=== PATIENT | male | born 1975 | race Caucasian/White ===

== ENCOUNTER 2019-06-28 17:40 | Emergency (ER) | payer OTHER ==
--- NOTE | 2019-06-28 17:59 | RAD REPORT ---
EXAM DESCRIPTION: CT - Ct Stroke Brain Wo Cont - 06/28/2019 5:49 pm CLINICAL HISTORY: Visual disturbance COMPARISON: 2010 TECHNIQUE: Computed axial tomography of the head was obtained. All CT scans are performed using dose optimization technique as appropriate and may include automated exposure control or mA/KV adjustment according to patient size. FINDINGS: An intracranial bleed is not seen . The ventricles are normal in caliber. No extra-axial fluid collection is noted. Fluid within the sinuses/ mastoids is not seen. IMPRESSION: No acute intracranial abnormality is seen. If patient's symptoms persist MRI of the bra in would be recommended. Dr Stock of the emergency room was notified at 5:54 p.m. on June 28, 2019
[2019-06-28 18:06] LABS: Absolute Lymphocytes (CBC) 2.5 K/uL (0.7-4.9); Basophils % 0.4 % (0-1.3); Hematocrit 43.7 % (39.6-49.0); Lymphocytes % 34.1 % (15.3-44.8); MPV 9.1 fL (7.6-11.3); RBC Red Blood Cell Count 4.78 M/uL (4.33-5.43)
[2019-06-28] MEDS ORDERED: ALTEPLASE 100 ML IV ONE (18:07)
[2019-06-28] MEDS ORDERED: NA CHLORIDE 0.9% 50 ML IV ONE (18:07)
[2019-06-28 18:11] LABS: Protime INR 0.97
--- NOTE | 2019-06-28 18:14 | EDPHYS ---
Physician Documentation [facility] Name: Zander Sanchez Age: 43 yrs Sex: Male : 1975 Arrival Date: 06/28/2019 Time: 17:42 Bed 25 Private MD: ED Physician Thanh Stock HPI: 06/28 17:46 This 43 yrs old Male presents to ER via Ambulatory with complaints of Right kdr visula field deficit. 17:46 The patient presents to the emergency department with a vision problem, right visual kdr field loss, Right eye greater than left. Onset: The symptoms/episode began/occurred suddenly, 0.25 hour(s) ago. Context: occurred at home, occurred while the patient was at rest. Associated signs and symptoms: Pertinent positives: headache, Left sided - began a few minutes before the visual filed deficits. He has had prior Migraine DUONG but they have not previously manifest in tis fashion. Severity of symptoms: At their worst the symptoms were mild in the emergency department the symptoms are unchanged. Patient's baseline: Neuro: alert and fully oriented, Motor: no deficits, Ambulation: walks without assistance, Speech: normal, The patient has a previous history of. Current symptoms: visual disturbance, blurred vision, loss of vision, hemianopsia is described. The patient has not experienced similar symptoms in the past. The patient has not recently seen a physician. Historical: - Allergies: 17:48 No Known Allergies; mg2 - PMHx: 17:48 cluster headaches; Myocardial infarction; Hyperlipidemia; Hypertension; mg2 - Immunization history:: Flu vaccine is not up to date. - Social history:: Smoking status: Patient uses tobacco products, smokes one pack cigarettes per day. - Ebola Screening: : No symptoms or risks identified at this time. ROS: 17:46 Constitutional: Negative for fever, chills, and weight loss, Eyes: Negative for injury, kdr pain, redness, and discharge, ENT: Negative for injury, pain, and discharge, Neck: Negative for injury, pain, and swelling, Cardiovascular: Negative for chest pain, palpitations, and edema, Respiratory: Negative for shortness of breath, cough, wheezing, and pleuritic chest pain, Abdomen/GI: Negative for abdominal pain, nausea, vomiting, diarrhea, and constipation, Back: Negative for injury and pain, : Negative for injury, bleeding, discharge, and swelling, MS/Extremity: Negative for injury and deformity, Skin: Negative for injury, rash, and discoloration, Psych: Negative for depression, anxiety, suicide ideation, homicidal ideation, and hallucinations, Allergy/Immunology: Negative for hives, rash, and allergies, Endocrine: Negative for neck swelling, polydipsia, polyuria, polyphagia, and marked weight changes, Hematologic/Lymphatic: Negative for swollen nodes, abnormal bleeding, and unusual bruising. 17:46 Neuro: Positive for headache, visual changes, Negative for altered mental status, dizziness, gait disturbance, numbness, seizure activity, speech changes, syncope, near syncope, tingling, tinnitus, tremor, weakness, acute changes. Exam: 17:46 Constitutional: This is a well developed, well nourished patient who is awake, alert, kdr and in no acute distress. Head/Face: Normocephalic, atraumatic. Eyes: Pupils equal round and reactive to light, extra-ocular motions intact. Lids and lashes normal. Conjunctiva and sclera are non-icteric and not injected. Cornea within normal limits. Periorbital areas with no swelling, redness, or edema. Neck: Trachea midline, no thyromegaly or masses palpated, and no cervical lymphadenopathy. Supple, full range of motion without nuchal rigidity, or vertebral point tenderness. No Meningismus. Chest/axilla: Normal chest wall appearance and motion. Nontender with no deformity. No lesions are appreciated. Cardiovascular: Regular rate and rhythm with a normal S1 and S2. No gallops, murmurs, or rubs. Normal PMI, no JVD. No pulse deficits. Respiratory: Lungs have equal breath sounds bilaterally, clear to auscultation and percussion. No rales, rhonchi or wheezes noted. No increased work of breathing, no retractions or nasal flaring. Abdomen/GI: Soft, non-tender, with normal bowel sounds. No distension or tympany. No guarding or rebound. No evidence of tenderness throughout. Back: No spinal tenderness. No costovertebral tenderness. Full range of motion. Skin: Warm, dry with normal turgor. Normal color with no rashes, no lesions, and no evidence of cellulitis. MS/ Extremity: Pulses equal, no cyanosis. Neurovascular intact. Full, normal range of motion. Psych: Awake, alert, with orientation to person, place and time. Behavior, mood, and affect are within normal limits. 17:46 Neuro: Orientation: is normal, Mentation: is normal, Memory: is normal, Cranial nerves: grossly normal, Motor: is normal, Sensation: Vital Signs: 17:46 BP 145 / 90; Pulse 65; Resp 18; Temp 98.5; Pulse Ox 98% on R/A; Weight 99.79 kg; Height mg2 6 ft. 2 in. (187.96 cm); Pain 2/10; 18:25 BP 132 / 92; Pulse 64; Resp 18; Pulse Ox 100% on R/A; mg2 18:29 BP 132 / 92; Pulse 74; Resp 16; Pulse Ox 100% on R/A; iw 18:40 BP 145 / 93; Pulse 66; Resp 18; Pulse Ox 100% ; mg2 19:10 BP 130 / 86; Pulse 68; Resp 18; Pulse Ox 100% ; mg2 19:25 BP 128 / 88; Pulse 72; Resp 18; Temp 98.5; Pulse Ox 100% on R/A; mg2 19:25 BP 128 / 88; Pulse 72; Resp 18; Pulse Ox 100% ; Pain 0/10; mg2 20:10 BP 122 / 80; Pulse 71; Resp 18; Temp 98.2; Pulse Ox 100% on R/A; Pain 0/10; mg2 17:46 Body Mass Index 28.25 (99.79 kg, 187.96 cm) mg2 NIH Stroke Scale Scores: 17:45 NIHSS Score: 2 kdr 18:15 NIHSS Score: 2 mg2 MDM: 18:13 Patient medically screened. kdr 18:25 Data reviewed: vital signs, nurses notes, lab test result(s), EKG, radiologic studies. kdr Counseling: I had a detailed discussion with the patient and/or guardian regarding: the historical points, exam findings, and any diagnostic results supporting the discharge/admit diagnosis, lab results, radiology results, the need to transfer to another facility. Physician consultation: Bryan Thornton MD was called at 18:15, was contacted at 18:15, regarding patient's condition, Rec drip \T\ ship. 06/28 17:44 Order name: Basic Metabolic Panel kdr 06/28 17:44 Order name: CBC with Diff kdr 06/28 17:44 Order name: Protime (+inr) kdr 06/28 17:44 Order name: Ptt, Activated kdr 06/28 17:44 Order name: CT Stroke Brain w/o Contrast kdr 06/28 18:10 Order name: Glucose, Ancillary Testing EDMS 06/28 17:44 Order name: Stroke CXR 1 View kdr 06/28 17:44 Order name: EKG; Complete Time: 17:45 kdr 06/28 17:44 Order name: Accucheck; Complete Time: 18:00 kdr 06/28 17:44 Order name: Cardiac monitoring; Complete Time: 18:00 kdr 06/28 17:44 Order name: EKG - Nurse/Tech; Complete Time: 18:00 kdr 06/28 17:44 Order name: IV Saline Lock; Complete Time: 18:00 kdr 06/28 17:44 Order name: Labs collected and sent; Complete Time: 18:00 kdr 06/28 17:44 Order name: NPO; Complete Time: 18:00 kdr 06/28 17:44 Order name: O2 Per Protocol; Complete Time: 18:00 kdr 06/28 17:44 Order name: O2 Sat Monitoring; Complete Time: 18:00 kdr 06/28 17:44 Order name: Stroke Swallow Screen; Complete Time: 18:00 kdr Administered Medications: 18:21 Drug: Alteplase {Co-Signature: iw (Racquel Oneal RN).} Route: IV Thrombolytics; Rate: mg2 calculated rate; 19:25 Follow up: BP 128 / 88; Pulse 72 bpm; Resp 18 bpm; Pulse Ox 100% ; Pain 0/10 Adult mg2 18:26 Not Given (Physician Discretion): Tenecteplase 30 mg IV at calculated rate once; See mg2 stroke protocol for exact administration dosing and rate 18:45 Drug: [place] (7.5 mg-325 mg) 1 tabs Route: PO; iw 19:30 Follow up: Response: No adverse reaction; Marked relief of symptoms mg2 Point of Care Testing: Blood Glucose: 17:55 Blood Glucose: 93 mg/dL; mg2 Ranges: Critical Glucose Levels:Adult <50 mg/dl or >400 mg/dl <40 mg/dl or >180 mg/dl Disposition: 06/28/19 18:13 Transfer ordered to [facility]. Diagnosis is Non-hemorrhagic CVA with right hemianopsia. - Reason for transfer: Higher level of care. - Accepting physician is Tao Huang. - Condition is Serious. - Problem is new. - Symptoms have improved. NIH Stroke Scale - NIH Stroke Score Date: 06/28/2019 Time: 17:45 Total Score = 2 1a. Level of Consciousness (LOC) - 0(Alert) 1b. Level of Consciousness (LOC) (Year \T\ Age) - 0(Both) 1c. LOC Commands (Open \T\ Closes Eyes/Health Plan Advisor) - 0(Both) 2. Best Gaze (Lateral Gaze Paresis) - 0(Normal) 3. Visual Field Loss - 2(Complete hemianopia) 4. Facial Palsy - 0(Normal) 5a. Left Arm: Motor (10-second hold) - 0(No drift) 5b. Right Arm: Motor (10-second hold) - 0(No drift) 6a. Left Leg: Motor (5-second hold - always test supine) - 0(No drift) 6b. Right Leg: Motor (5-second hold - always test supine) - 0(No drift) 7. Limb Ataxia (finger/nose \T\ heel/silva - test with eyes open) - 0(Absent) 8. Sensory Loss (pinprick arms/legs/face) - 0(Normal) 9. Best Language: Aphasia (description/naming/reading) - 0(No aphasia) 10. Dysarthria (speech clarity - read or repeat words) - 0(Normal) 11. Extinction and Inattention (visual/tactile/auditory/spatial/personal) - 0(No abnormality) Initials: [facility] NIH Stroke Scale - NIH Stroke Score Date: 06/28/2019 Time: 18:15 Total Score = 2 1a. Level of Consciousness (LOC) - 0(Alert) 1b. Level of Consciousness (LOC) (Year \T\ Age) - 0(Both) 1c. LOC Commands (Open \T\ Closes Eyes/Health Plan Advisor) - 0(Both) 2. Best Gaze (Lateral Gaze Paresis) - 0(Normal) 3. Visual Field Loss - 2(Complete hemianopia) 4. Facial Palsy - 0(Normal) 5a. Left Arm: Motor (10-second hold) - 0(No drift) 5b. Right Arm: Motor (10-second hold) - 0(No drift) 6a. Left Leg: Motor (5-second hold - always test supine) - 0(No drift) 6b. Right Leg: Motor (5-second hold - always test supine) - 0(No drift) 7. Limb Ataxia (finger/nose \T\ heel/silva - test with eyes open) - 0(Absent) 8. Sensory Loss (pinprick arms/legs/face) - 0(Normal) 9. Best Language: Aphasia (description/naming/reading) - 0(No aphasia) 10. Dysarthria (speech clarity - read or repeat words) - 0(Normal) 11. Extinction and Inattention (visual/tactile/auditory/spatial/personal) - 0(No abnormality) Initials: [facility] [place] Signatures: Dispatcher [employer] EDMS Thanh Stock MD MD [facility] Racquel Oneal RN RN iw Onofre Marcial RN RN [facility] [place] Racquel Oneal RN iw Corrections: (The following items were deleted from the chart) 20:27 18:13 06/28/2019 18:13 Transfer ordered to [address] Diagnosis is Non-hemorrhagic CVA with right hemianopsia. Reason for transfer: Higher level of care. Accepting physician is [facility]. Condition is Serious. Problem is new. Symptoms have improved. kdr
--- NOTE | 2019-06-28 18:14 | ER ---
Nurse's Notes [facility] Name: Zander Sanchez Age: 43 yrs Sex: Male : 1975 Arrival Date: 06/28/2019 Time: 17:42 Bed 25 [facility] MD: Diagnosis: Non-hemorrhagic CVA with right hemianopsia Presentation: 06/28 17:43 Presenting complaint: Patient states: i started to have loss of vision on my right eye mg2 field. i also have headache on my left side. 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 im also a bit nauseated. Transition of care: patient was not received from another setting of care. Onset of symptoms was June 28, 2019 at 17:15. Risk Assessment: Do you want to hurt yourself or someone else? Patient reports no desire to harm self or others. Initial Sepsis Screen: Does the patient meet any 2 criteria? No. Patient's initial sepsis screen is negative. Does the patient have a suspected source of infection? No. Patient's initial sepsis screen is negative. Care prior to arrival: None. 17:43 Method Of Arrival: Ambulatory mg2 17:43 Acuity: KIMBERLY 2 mg2 17:49 The patients blood glucose was checked before arriving to the hospital and was found to iw be normal. Triage Assessment: 18:30 The onset of the patients symptoms was June 28, 2019 at 17:00. mg2 18:30 General: Appears in no apparent distress. comfortable, Behavior is calm, cooperative. mg2 Pain: Complains of pain in right side of the head Pain does not radiate. Pain currently is 2 out of 10 on a pain scale. Quality of pain is described as aching, Pain began gradually, 1 hour ago. Is intermittent. EENT: No signs and/or symptoms were reported regarding the EENT system. Neuro: Level of Consciousness is awake, alert, obeys commands, Oriented to person, place, time, situation, Reports headache in right bahai vision loss in the right eye field. Cardiovascular: Capillary refill < 3 seconds Patient's skin is warm and dry. Respiratory: Airway is patent Respiratory effort is even, unlabored, Respiratory pattern is regular, symmetrical. GI: No signs and/or symptoms were reported involving the gastrointestinal system. : No signs and/or symptoms were reported regarding the genitourinary system. Derm: Skin is intact, is healthy with good turgor, Skin is pink, warm \T\ dry. normal. Musculoskeletal: Circulation, motion, and sensation intact. Capillary refill < 3 seconds. Stroke Activation: Symptom onset < 3 hours Physician: Stroke Attending; Name: ; Notified At: ; Arrived At: Physician: Chief Stroke Resident; Name: ; Notified At: ; Arrived At: Physician: Stroke Resident; Name: ; Notified At: ; Arrived At: Physician: ED Attending; Name: Dr. Vegas; Notified At: 17:49; Arrived At: 17:49 Physician: ED Resident; Name: ; Notified At: ; Arrived At: Historical: - Allergies: 17:48 No Known Allergies; mg2 - PMHx: 17:48 cluster headaches; Myocardial infarction; Hyperlipidemia; Hypertension; mg2 - Immunization history:: Flu vaccine is not up to date. - Social history:: Smoking status: Patient uses tobacco products, smokes one pack cigarettes per day. - Ebola Screening: : No symptoms or risks identified at this time. Screenin:01 Abuse screen: Denies threats or abuse. Denies injuries from another. Nutritional mg2 screening: No deficits noted. Tuberculosis screening: No symptoms or risk factors identified. Fall Risk IV access (20 points). Assessment: 18:20 Patient has been NPO before screening. The patient is alert, and able to follow mg2 commands. The patient does not exhibit slurred or garbled speech. The patient is not exhibiting difficulty speaking. The patient does not exhibit difficulty understanding words. The patient is able to swallow own secretions with no drooling or need for suction. Patient tolerated one teaspoon of water. No drooling, immediate coughing, gurgling, or clearing of the throat was noted. The patient tolerated 90mL of water. No drooling, immediate coughing, gurgling, or clearing of the throat was noted. The patient passed the bedside swallow screening. Oral medications may be given as ordered. Contact Physician for further diet orders. Provider notified of bedside swallow screening results: Thanh Stock MD. 18:20 VAN Scoring: Arm Drift: Patients demonstrates NO arm weakness. Patient is VAN Negative. 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 Provider notified of +VAN scoring. Aphasia: No aphasia noted. Neglect: No neglect noted. T-PA (Activase) Screening: Indications: Definite evidence of stroke, ischemic, embolic, or hypertensive: Yes. Treatment will start within 4.5 hours onset of symptoms: Yes. No evidence of intracranial hemorrhage or CT of head and no evidence of peripheral hemorrhage or recent CVA: Yes. Consent for thrombolytic therapy: Yes. Pain: Complains of pain in head Pain does not radiate. Pain currently is 2 out of 10 on a pain scale. Quality of pain is described as aching, Pain began suddenly, 1 hour ago. Is intermittent. Neuro: Level of Consciousness is awake, alert, obeys commands, Oriented to person, place, time, situation. 18:28 Reassessment: Pt has been consented for TPA, bolus of 8.8 mg administered at 1821, iw verified by ARIEL Adhikari, infusion of 79.4 mg started at 1825, ARIEL Adhikari at beside to monitor patient. 19:05 Reassessment: Report given to AFSHAN Gomez 17 minutes. iw 19:10 Reassessment: Patient appears in no apparent distress at this time. Patient and/or mg2 family updated on plan of care and expected duration. Pain level reassessed. patient verbalized improvement in vision. he can actually read the snellen chart from his right side. Patient states feeling better. Patient states symptoms have improved. 19:45 Reassessment: Patient appears in no apparent distress at this time. report given to carmen Sihn RN of [facility]. Vital Signs: 17:46 BP 145 / 90; Pulse 65; Resp 18; Temp 98.5; Pulse Ox 98% on R/A; Weight 99.79 kg; Height mg2 6 ft. 2 in. (187.96 cm); Pain 2/10; 18:25 BP 132 / 92; Pulse 64; Resp 18; Pulse Ox 100% on R/A; mg2 18:29 BP 132 / 92; Pulse 74; Resp 16; Pulse Ox 100% on R/A; iw 18:40 BP 145 / 93; Pulse 66; Resp 18; Pulse Ox 100% ; mg2 19:10 BP 130 / 86; Pulse 68; Resp 18; Pulse Ox 100% ; mg2 19:25 BP 128 / 88; Pulse 72; Resp 18; Temp 98.5; Pulse Ox 100% on R/A; mg2 19:25 BP 128 / 88; Pulse 72; Resp 18; Pulse Ox 100% ; Pain 0/10; mg2 20:10 BP 122 / 80; Pulse 71; Resp 18; Temp 98.2; Pulse Ox 100% on R/A; Pain 0/10; mg2 17:46 Body Mass Index 28.25 (99.79 kg, 187.96 cm) mg2 NIH Stroke Scale Scores: 17:45 NIHSS Score: 2 kdr 18:15 NIHSS Score: 2 mg2 ED Course: 17:42 Patient arrived in ED. iw 17:42 Thanh Stock MD is Attending Physician. kdr 17:43 Onofre Marcial, RN is Primary Nurse. mg2 17:46 Triage completed. mg2 17:49 Arm band placed on. mg2 17:51 CT Stroke Brain w/o Contrast In Process Unspecified. EDMS 17:55 Inserted saline lock: 20 gauge in left antecubital area, using aseptic technique. Blood mg2 collected. 18:03 EKG done, by safety technician. reviewed by Thanh Stock MD. sm3 18:08 Stroke CXR 1 View In Process Unspecified. EDMS 18:15 No provider procedures requiring assistance completed. mg2 18:16 initiated a transfer with Sofi at the [facility]. eb 18:20 Patient has correct armband on for positive identification. mg2 18:20 teletypesetter monitor on. Pulse ox on. NIBP on. Door closed. mg2 20:26 Patient transferred, IV remains in place. mg2 Administered Medications: 18:21 Drug: Alteplase {Co-Signature: iw (Racquel Oneal RN).} Route: IV Thrombolytics; Rate: mg2 calculated rate; 19:25 Follow up: BP 128 / 88; Pulse 72 bpm; Resp 18 bpm; Pulse Ox 100% ; Pain 0/10 Adult mg2 18:26 Not Given (Physician Discretion): Tenecteplase 30 mg IV at calculated rate once; See mg2 stroke protocol for exact administration dosing and rate 18:45 Drug: [place] (7.5 mg-325 mg) 1 tabs Route: PO; iw 19:30 Follow up: Response: No adverse reaction; Marked relief of symptoms mg2 Point of Care Testing: Blood Glucose: 17:55 Blood Glucose: 93 mg/dL; mg2 Ranges: Outcome: 18:13 ER care complete, transfer ordered by . kdr 20:20 Transferred by ground EMS to [facility], Transfer form completed. mg2 20:20 Condition: stable 20:20 Instructed on the need for transfer, Demonstrated understanding of instructions. mg2 20:27 Patient left the ED. mg2 NIH Stroke Scale - NIH Stroke Score Date: 06/28/2019 Time: 17:45 Total Score = 2 1a. Level of Consciousness (LOC) - 0(Alert) 1b. Level of Consciousness (LOC) (Year \T\ Age) - 0(Both) 1c. LOC Commands (Open \T\ Closes Eyes/Bus Boy) - 0(Both) 2. Best Gaze (Lateral Gaze Paresis) - 0(Normal) 3. Visual Field Loss - 2(Complete hemianopia) 4. Facial Palsy - 0(Normal) 5a. Left Arm: Motor (10-second hold) - 0(No drift) 5b. Right Arm: Motor (10-second hold) - 0(No drift) 6a. Left Leg: Motor (5-second hold - always test supine) - 0(No drift) 6b. Right Leg: Motor (5-second hold - always test supine) - 0(No drift) 7. Limb Ataxia (finger/nose \T\ heel/silva - test with eyes open) - 0(Absent) 8. Sensory Loss (pinprick arms/legs/face) - 0(Normal) 9. Best Language: Aphasia (description/naming/reading) - 0(No aphasia) 10. Dysarthria (speech clarity - read or repeat words) - 0(Normal) 11. Extinction and Inattention (visual/tactile/auditory/spatial/personal) - 0(No abnormality) Initials: kdr NIH Stroke Scale - NIH Stroke Score Date: 06/28/2019 Time: 18:15 Total Score = 2 1a. Level of Consciousness (LOC) - 0(Alert) 1b. Level of Consciousness (LOC) (Year \T\ Age) - 0(Both) 1c. LOC Commands (Open \T\ Closes Eyes/Bus Boy) - 0(Both) 2. Best Gaze (Lateral Gaze Paresis) - 0(Normal) 3. Visual Field Loss - 2(Complete hemianopia) 4. Facial Palsy - 0(Normal) 5a. Left Arm: Motor (10-second hold) - 0(No drift) 5b. Right Arm: Motor (10-second hold) - 0(No drift) 6a. Left Leg: Motor (5-second hold - always test supine) - 0(No drift) 6b. Right Leg: Motor (5-second hold - always test supine) - 0(No drift) 7. Limb Ataxia (finger/nose \T\ heel/silva - test with eyes open) - 0(Absent) 8. Sensory Loss (pinprick arms/legs/face) - 0(Normal) 9. Best Language: Aphasia (description/naming/reading) - 0(No aphasia) 10. Dysarthria (speech clarity - read or repeat words) - 0(Normal) 11. Extinction and Inattention (visual/tactile/auditory/spatial/personal) - 0(No abnormality) Initials: mg2 Signatures: Dispatcher [employer] EDMS Thanh Stock MD MD kdr Williams, Irene, RN RN iw Cristela Lynne Michele, RN RN mg2 Radha Austin 3 Racquel Oneal RN iw Corrections: (The following items were deleted from the chart) 22:06 18:15 Inserted saline lock: 20 gauge in left antecubital area, using aseptic mg2 technique. Blood collected. mg2
[2019-06-28] MEDS ORDERED: HYDROCODONE/APAP 7.5/325 MG TAB ONE (18:45)
--- NOTE | 2019-06-28 19:05 | RAD REPORT ---
EXAM DESCRIPTION: Hank Single View06/28/2019 6:10 pm CLINICAL HISTORY: Hypertension visual defect COMPARISON: 2016 FINDINGS: The lungs appear clear of acute infiltrate. The heart is normal size IMPRESSION: No acute abnormalities displayed
[2019-06-28 20:33] VITALS: TEMP 98.5
[2019-06-28 20:34] VITALS: BP 132/92; O2SAT 100
--- NOTE | 2019-06-29 12:30 | EKG ---
Test Date: 2019-06-28 Test Time: 17:47:30 Etcher Electrolytic: JORDAN MEASUREMENT RESULTS: Intervals: Rate: 60 ID: [id number] QRSD: 96 QT: 400 QTc: 400 Reddick: P: 63 ID: [id number] QRS: 14 T: 66 INTERPRETIVE STATEMENTS: Normal sinus rhythm Normal ECG Compared to ECG 05/17/2017 20:24:00 Incomplete right bundle-branch block no longer present Electronically Signed On 06-29-19 12:29:07 CDT by Collins Osman
== END 2019-06-28 20:27 | disposition short-term general hospital (02) ==
LOC: ER 17:40
DX: I63.9 Cerebral infarction, unspecified (principal); H53.461 Homonymous bilateral field defects, right side; F17.210 Nicotine dependence, cigarettes, uncomplicated; I10 Essential (primary) hypertension; R29.702 NIHSS score 2
CPT/HCPCS: 92977; 93005; 85025; 80048; 36415; 85610; 82947; 85730; 70450; 71045; 99285; 96374; J2997

== ENCOUNTER 2025-04-17 06:20 | Emergency (ER) | payer OTHER, SELFPAY ==
[2025-04-17 06:52] LABS: Absolute Lymphocytes (CBC) 1.7 K/uL (0.7-4.9); Hematocrit 43.3 % (39.6-49.0); Hemoglobin 15.1 g/dL (13.6-17.9); MCH 30.8 pg (27.0-35.0); MCHC 34.8 g/dL (32.0-36.0); MCV 88.7 fL (80-100); MPV 8.6 fL (7.6-11.3); Nucleated RBC Absolute Count 0.0 (0-0); Nucleated Red Blood Cells % 0.0 % (0-0); RBC Red Blood Cell Count 4.88 M/uL (4.33-5.43); White Blood Count 6.60 thou/uL (4.3-10.9)
[2025-04-17 06:59] LABS: PT Prothrombin Time 11.5 SECONDS (10-13.0); Protime INR 1.02
--- NOTE | 2025-04-17 07:01 | RAD REPORT ---
Procedure: Chest Single View HISTORY: Chest pain COMPARISON: 2019 FINDINGS: The lungs appear clear of acute infiltrate. No significant pleural effusion noted. The heart is normal size. IMPRESSION: No acute abnormality is displayed.
[2025-04-17 07:14] LABS: ALT/SGPT 44 U/L (16-61); AST/SGOT 16 U/L (15-37); Albumin 3.6 g/dL (3.4-5.0); Albumin/Globulin Ratio 1.2 (1.1-1.8); Alkaline Phosphatase 82 U/L (45-117); Anion Gap 8.0 mEq/L (5.0-15.0); BUN Blood Urea Nitrogen 15 mg/dL (7-18); Globulin 3.1 g/dL (2.3-3.5); Glucose Level 127 mg/dL (74-106); NT PRO-BNP 112 pg/mL (<125); Potassium 4.0 mEq/L (3.5-5.1); Troponin High Sensitivity 4.0 pg/mL (<58.9)
[2025-04-17 07:18] LABS: Bilirubin Indirect, Calculated 0.2 mg/dL (0.2-0.8)
--- NOTE | 2025-04-17 09:09 | ER ---
Nurse's Notes [facility] Name: Zander Sanchez Age: 49 yrs Sex: Male : 1975 Arrival Date: 04/17/2025 Time: 06:20 Bed 2 Private MD: Diagnosis: Chest pain, unspecified;Flushing Presentation: 04/17 06:23 Chief complaint: Patient states: TOOK NITROGLYCERIN PRESCRIBED ONE HOUR AGO, AFTER ha1 TO FEEL CHEST PAIN AFTER TAKING THE MEDICATION. PAIN RADIATES TO THE LEFT ARM. 06:23 Coronavirus screen: Client denies travel out of the [place] in the last 14 days. Ebola ha1 Screen: No symptoms or risks identified at this time. Initial Sepsis Screen: Does the patient meet any 2 criteria? No. Patient's initial sepsis screen is negative. Does the patient have a suspected source of infection? No. Patient's initial sepsis screen is negative. Risk Assessment: Do you want to hurt yourself or someone else? Patient reports no desire to harm self or others. Onset of symptoms was April 17, 2025. 06:23 Method Of Arrival: Wheelchair ha1 06:23 Acuity: KIMBERLY 2 ha1 Triage Assessment: 07:00 General: Appears in no apparent distress. Behavior is calm, cooperative, appropriate bp for age. Pain: Complains of pain in head. EENT: No deficits noted. Neuro: Reports headache. Cardiovascular: No deficits noted. Respiratory: No deficits noted. GI: No signs and/or symptoms were reported involving the gastrointestinal system. : No signs and/or symptoms were reported regarding the genitourinary system. Derm: No deficits noted. Musculoskeletal: No deficits noted. Historical: - Allergies: 06:39 No Known Allergies; ha1 - PMHx: 06:39 cluster headaches; Hyperlipidemia; Hypertension; Myocardial infarction; ha1 - Immunization history:: Adult Immunizations up to date. - Infectious Disease History:: Denies. - Family history:: not pertinent. - Social history:: Smoking status: Patient reports the use of cigarette tobacco products, smokes one pack cigarettes per day. - Hospitalizations: : No recent hospitalization is reported. Screenin:51 [facility] ED Fall Risk Assessment (Adult) History of falling in the last 3 months, jj7 including since admission No falls in past 3 months (0 pts) Confusion or Disorientation No (0 pts) Intoxicated or Sedated No (0 pts) Impaired Gait No (0 pts) Mobility Assist Device Used No (0 pt) Altered Elimination No (0 pt) Score/Fall Risk Level 0 - 2 = Low Risk Oriented to surroundings, Maintained a safe environment, Educated pt \T\ family on fall prevention, incl call for assistance when getting out of bed, Assessed \T\ reinforced patient's understanding of fall precautions. Abuse screen: Denies threats or abuse. Nutritional screening: No deficits noted. Tuberculosis screening: No symptoms or risk factors identified. Assessment: 06:51 General: Appears in no apparent distress. comfortable, Behavior is calm, cooperative, jj7 appropriate for age. Pain: Denies pain. Pain: Pain does not radiate. Pain began 2 hours ago. Neuro: Reports headache. Cardiovascular: Reports Denies chest pain, nausea, shortness of breath. 09:04 Reassessment: Patient appears in no apparent distress at this time. Patient is alert, bp oriented x 3, equal unlabored respirations, skin warm/dry/pink. Vital Signs: 06:23 BP 126 / 82; Pulse 48; Resp 18 S; Temp 97.6; Pulse Ox 99% on R/A; Weight 104.33 kg; ha1 Height 6 ft. 2 in. ; Pain 5/10; 07:00 BP 107 / 68; Pulse 58; Resp 14; Pulse Ox 98% ; bp 09:00 BP 101 / 65; Pulse 56; Resp 18; Pulse Ox 100% ; bp 09:31 BP 107 / 68; Pulse 64; Resp 17; Pulse Ox 99% ; bp 06:23 Body Mass Index 29.53 (104.33 kg, 187.96 cm) ha1 06:23 Pain Scale: Adult ha1 ED Course: 06:21 Patient arrived in ED. jj6 06:32 Ludwig Nunes MD is Attending Physician. rn 06:39 Triage completed. ha1 06:39 EKG done, by ED staff, reviewed by Ludwig Nunes MD. rk3 06:44 Basic Metabolic Panel Sent. jj7 06:44 CBC with Diff Sent. jj7 06:44 LFT's Sent. jj7 06:44 NT PRO-BNP Sent. jj7 06:44 PT-INR Sent. jj7 06:44 Troponin HS Sent. jj7 06:51 Patient has correct armband on for positive identification. Bed in low position. Call jj7 light in reach. Provided Education on: USE OF CALL MAURER. Client placed on continuous cardiac and pulse oximetry monitoring. NIBP monitoring applied. engine monitor on. Pulse ox on. NIBP on. 06:55 XRAY Chest (1 view) In Process Unspecified. EDMS 07:03 Report given to REPORT GIVEN YARI AND CIRO RN. jj7 07:26 Attending Physician role handed off by Ludwig Nunes MD ms3 07:26 Christian Mason DO is Attending Physician. ms3 07:33 Phuong Marquez, RN is Primary Nurse. ph 09:31 No provider procedures requiring assistance completed. IV discontinued, intact, bp bleeding controlled, No redness/swelling at site. Pressure dressing applied. Patient maintains SpO2 saturation greater than 95% on room air. Administered Medications: No medications were administered Medication: 06:51 VIS not applicable for this client. jj7 Outcome: 09:09 Discharge ordered by . ms3 09:31 Discharged to home ambulatory, bp 09:31 Condition: stable 09:31 Discharge instructions given to patient, Instructed on discharge instructions, follow up and referral plans. Demonstrated understanding of instructions, follow-up care, 09:32 Patient left the ED. bp Signatures: Dispatcher [employer] EDMS Ludwig Nunes MD MD rn Phuong Marquez, RN RN Ciro Preston, RN RN bp Christian Mason DO DO ms3 Marysol Janelle jj6 Muriel Mims RN RN ha1 Clement Michelle RN RN jj7 Janina Castro rk3
--- NOTE | 2025-04-17 09:09 | EDPHYS ---
Physician Documentation [facility] Name: Zander Sanchez Age: 49 yrs Sex: Male : 1975 Arrival Date: 04/17/2025 Time: 06:20 Bed 2 Private MD: ED Physician Christian Mason HPI: 04/17 06:37 This 49 yrs old Male presents to ER via Unassigned with complaints of Chest Pain. rn 06:37 Patient reports took a new long-acting nitroglycerin for the first time this morning, rn was followed by headache, flushing, diaphoresis, chest pain, left arm pain. Is already feeling much better but wanted to get checked out. Has had OK in the past. Has been having episodes of chest pain and saw his process tech recently which is the reason his nitroglycerin was added. States his process tech plans on cathing him soon.. Historical: - Allergies: 06:39 No Known Allergies; ha1 - PMHx: 06:39 cluster headaches; Hyperlipidemia; Hypertension; Myocardial infarction; ha1 - Immunization history:: Adult Immunizations up to date. - Infectious Disease History:: Denies. - Family history:: not pertinent. - Social history:: Smoking status: Patient reports the use of cigarette tobacco products, smokes one pack cigarettes per day. - Hospitalizations: : No recent hospitalization is reported. ROS: 06:37 Constitutional: Negative for fever, chills, and weight loss, Cardiovascular: Positive rn for chest pain Respiratory: Negative for shortness of breath, cough, wheezing, and pleuritic chest pain, Abdomen/GI: Negative for abdominal pain, nausea, vomiting, diarrhea, and constipation, Neuro: Negative for weakness, numbness, tingling, and seizure, Exam: 06:37 Constitutional: This is a well developed, well nourished patient who is awake, alert, rn and in no acute distress. Head/Face: Normocephalic, atraumatic. Cardiovascular: Bradycardic, regular Respiratory: Speaking full sentences, unlabored Skin: Warm, dry, no cyanosis Neuro: Awake and alert, GCS 15 06:41 ECG was reviewed by the Attending Physician. rn Vital Signs: 06:23 BP 126 / 82; Pulse 48; Resp 18 S; Temp 97.6; Pulse Ox 99% on R/A; Weight 104.33 kg; ha1 Height 6 ft. 2 in. ; Pain 5/10; 07:00 BP 107 / 68; Pulse 58; Resp 14; Pulse Ox 98% ; bp 09:00 BP 101 / 65; Pulse 56; Resp 18; Pulse Ox 100% ; bp 09:31 BP 107 / 68; Pulse 64; Resp 17; Pulse Ox 99% ; bp 06:23 Body Mass Index 29.53 (104.33 kg, 187.96 cm) ha1 06:23 Pain Scale: Adult ha1 MDM: 06:32 Medical Screening Exam initiated rn 07:27 Transition of care: Care assumed from Ludwig Nunes MD. ms3 07:40 Differential diagnosis: abnormal EKG, acute myocardial infarction, Medication reaction. ms3 ED course: Initial troponin 4. Patient care report received at [address] Nunes patient saw his process tech, Dr. Qureshi, yesterday. Patient began taking nitrates this morning. 30 minutes after taking his medication he began having symptoms that resolved prior to arrival to the emergency department. Plan if troponin negative and repeat troponin negative will discharge.. 09:09 HEART Score: History: Slightly Suspicious (0), ECG: Normal (0), Age: > 45 and < 65 ms3 years (1), Risk Factors: > or = 3 Risk factors for atherosclerotic disease (2), [Hypercholesterolemia] [Hypertension] Troponin: < or = 1 x Normal Limit (0), Total Score = 2. Data reviewed: vital signs, nurses notes, lab test result(s), EKG, radiologic studies, and as a result, I will discharge patient. 09:09 Independent interpretation of the following test(s) in the Emergency Department EKG: ms3 See my EKG interpretation above X-Ray: My interpretation is Chest x-ray image reviewed by me does not reveal pulmonary edema, widened mediastinum, pneumonia.. Care significantly affected by the following chronic conditions: Hypertension. Counseling: I had a detailed discussion with the patient and/or guardian regarding the historical points, exam findings, and any diagnostic results supporting the discharge/admit diagnosis, lab results, radiology results, the need for outpatient follow up, to return to the emergency department if symptoms worsen or persist or if there are any questions or concerns that arise at home. ED course: Discussed second troponin reading with patient. Labs, EKG, chest x-ray discussed. Patient to follow-up with his process tech, Dr. Qureshi in 1 to 2 days. Patient understands and agrees with plan. All questions were answered. Return precautions discussed include worsening symptoms, shortness of breath, chest pain, lightheadedness, dizziness, syncope, any other concerns. On reevaluation patient's symptoms have resolved, patient is alert and orient x 4, no apparent distress, nontoxic-appearing, speaking full sentences, ambulatory in the emergency department.. 04/17 06:36 Order name: Basic Metabolic Panel; Complete Time: 07:26 rn 04/17 06:36 Order name: CBC with Diff; Complete Time: 06:58 rn 04/17 06:36 Order name: LFT's; Complete Time: 07:26 rn 04/17 06:36 Order name: NT PRO-BNP; Complete Time: 07:26 rn 04/17 06:36 Order name: PT-INR; Complete Time: 07:01 rn 04/17 06:36 Order name: Troponin HS; Complete Time: 07:26 rn 04/17 07:27 Order name: Troponin High Sensitivity; Complete Time: 09:04 ms3 04/17 06:36 Order name: XRAY Chest (1 view); Complete Time: 07:02 rn 04/17 06:36 Order name: Cardiac monitoring; Complete Time: 06:42 rn 04/17 06:36 Order name: EKG - Nurse/Tech; Complete Time: 06:42 rn 04/17 06:36 Order name: IV Saline Lock; Complete Time: 06:44 rn 04/17 06:36 Order name: Labs collected and sent; Complete Time: 06:44 rn 04/17 06:36 Order name: O2 Per Protocol; Complete Time: 06:42 04/17 06:36 Order name: O2 Sat Monitoring; Complete Time: 06:42 rn 04/17 07:27 Order name: Repeat Cardiac Enzymes at: Repeat troponin at 8 am; Complete Time: 08:32 ms3 04/17 08:17 Order name: Labs - recollect needed: green; Complete Time: 08:38 bc6 EC:41 Rate is 50 beats/min. Rhythm is regular. QRS [place] is Normal. ID interval is normal. QRS rn interval is normal. QT interval is normal. No Q waves. T waves are Normal. No ST changes noted. Clinical impression: Sinus bradycardia. Interpreted by me. Reviewed by me. Administered Medications: No medications were administered Disposition Summary: 04/17/25 09:09 Discharge Ordered Notes: Location: Home ms3 Condition: Stable ms3 Diagnosis - Chest pain, unspecified ms3 - Flushing ms3 Followup: ms3 - With: Private Physician - When: 1 - 2 days - Reason: Recheck today's complaints Discharge Instructions: - Discharge Summary Sheet ms3 - Nonspecific Chest Pain, Adult ms3 Forms: - Medication Reconciliation Form ms3 - Antibiotic Education ms3 - Prescription Opioid Use ms3 - Patient Portal Instructions ms3 - Leadership Thank You Letter ms3 Signatures: Dispatcher [employer] EDMS Ludwig Nunes MD MD rn Sims, Marcus, DO DO ms3 Muriel Mims RN RN ha1 Odessa Whittaker 6 Corrections: (The following items were deleted from the chart) 06:37 06:37 Chest Single View+[email or web address] ordered. EDMS EDMS
[2025-04-17 11:02] VITALS: TEMP 97.6
[2025-04-17 11:07] VITALS: BP 107/68; O2SAT 99
== END 2025-04-17 09:32 | disposition home or self-care (01) ==
LOC: ER 06:20
DX: R07.9 Chest pain, unspecified (principal); R23.2 Flushing
CPT/HCPCS: 36415; 71045; 80048; 80076; 83880; 84484; 85025; 85610; 93005; 99284